=== PATIENT | male | born 1970 | race Caucasian/White ===

== ENCOUNTER 2018-11-05 15:29 | Emergency (ER) | payer BC, OTHER ==
[~2018-11-05] VITALS: Ht 180.3 cm; Wt 85.3 kg
[2018-11-05 15:30] VITALS: BP 139/83
[2018-11-05] MEDS ORDERED: ADACEL/BOOSTRIX VACCINE (DIPHTH/PERTUSS/ACELL/TETANUS)0.5ML SYR (90715) IM ONE (16:00)
== END 2018-11-05 16:19 | disposition home or self-care (01) ==
LOC: M ED 15:29
DX: S61.231A Puncture wound without foreign body of left index finger without damage to nail, initial encounter (principal); W27.0XXA Contact with workbench tool, initial encounter; Y92.89 Other specified places as the place of occurrence of the external cause; Y93.9 Activity, unspecified; Y99.0 Civilian activity done for income or pay

== ENCOUNTER → 2022-10-30 | Outpatient (REF) | payer BC ==
[2022-10-31 13:04] LABS: HEMATOCRIT 45.3 % (42.0-52.0)
[2022-10-31 13:08] LABS: IRON (FE) 120 UG/DL (65-175); PERCENT SATURATION 42.7 % (19.7-50.0); TOTAL IRON BINDING CAPACITY 281 UG/DL (250-425)
[2022-11-01 17:18] LABS: HEPATITIS B SURFACE ANTIGEN NEGATIVE (NEGATIVE)
[2022-11-01 17:40] LABS: HEPATITIS B CORE ANTIBODY IGM NEGATIVE (NEGATIVE)
== END ==
LOC: M LAB REF 12:26
PROVIDERS: ATTEND Nurse Practitioner Adult Health
DX: R74.01 Elevation of levels of liver transaminase levels (principal)

== ENCOUNTER → 2022-12-03 | Outpatient (CLI) | payer BC | LOC: M RAD 07:58 | PROVIDERS: ATTEND Nurse Practitioner Adult Health | DX: R74.01 Elevation of levels of liver transaminase levels (principal) ==

== ENCOUNTER → 2023-07-23 | Outpatient (CLI) | payer BC | LOC: M RAD 07:29 | PROVIDERS: ATTEND Chiropractor | DX: M54.50 Low back pain, unspecified (principal) ==

== ENCOUNTER 2024-11-23 14:48 | Inpatient (IN) | payer OTHER, MEDICAID ==
[~2024-11-23] VITALS: Ht 180.3 cm; Wt 68.4 kg
[2024-11-23 15:39] LABS: IONIZED CALCIUM 4.4 MG/DL (4.5-5.3)
[2024-11-23 15:50] LABS: BASO % 0.2 % (0.0-1.0); HEMATOCRIT 41.3 % (42.0-52.0); HEMOGLOBIN 14.4 g/dl (13.5-17.5); LYMPH # 0.3 10^3/uL (1.5-5.0); LYMPH % 5.1 % (24.0-44.0); MEAN CORPUSCULAR HEMOGLOBIN 33.6 pg (27.0-33.0); MEAN CORPUSCULAR HGB CONC 34.9 g/dl (32.0-36.5); MEAN CORPUSCULAR VOLUME 96.3 fl (80.0-96.0); MONO # 0.3 10^3/uL (0.0-0.8); NEUTROPHILS # 4.9 10^3/uL (1.5-8.5); NEUTROPHILS % 88.3 % (36.0-66.0); PLATELET COUNT, AUTOMATED 169 10^3/uL (150-450); RED BLOOD COUNT 4.29 10^6/uL (4.30-6.10); WHITE BLOOD COUNT 5.5 10^3/uL (4.0-10.0)
[2024-11-23 16:16] LABS: ETHYL ALCOHOL (ETHANOL) 0.004 % (0.000-0.010)
[2024-11-23 16:21] LABS: ALBUMIN 4.1 G/DL (3.2-5.2); ALKALINE PHOSPHATASE 69 U/L (40-129); ALT/SGPT 38 U/L (7.0-40); AST/SGOT 60 U/L (<34); BILIRUBIN,DIRECT 0.2 MG/DL (<0.4); BILIRUBIN,TOTAL 0.9 MG/DL (0.3-1.2); BLOOD UREA NITROGEN 5 MG/DL (9-23); CALCIUM LEVEL 8.8 MG/DL (8.5-10.1); CARBON DIOXIDE LEVEL 20 MMOL/L (20-31); CHLORIDE LEVEL 101 MMOL/L (98-107); GLOMERULAR FILTRATION RATE > 90.0 (>56); GLUCOSE, FASTING 149 MG/DL (60-100); PHOSPHORUS LEVEL 2.3 MG/DL (2.5-4.9); POTASSIUM SERUM 4.5 MMOL/L (3.5-5.1); SODIUM LEVEL 137 MMOL/L (136-145); TOTAL PROTEIN 6.8 G/DL (5.7-8.2)
[2024-11-23 16:33] LABS: RSV AMPLIFICATION NEGATIVE (NEGATIVE)
[2024-11-23] MEDS: ONDANSETRON 4MG 2ML VIAL IV ONE (16:45)
[2024-11-23] MEDS: LORazepam 2 MG/ML 1ML VIAL IV STA (16:54)
[2024-11-23] MEDS: NS (Normal Saline) 0.9% 1,000 ML IV ONE (18:00)
[2024-11-23] MEDS ORDERED: HOME MED LIST COMPLETE! XX SCH (18:10)
[2024-11-23] MEDS ORDERED: LORazepam 2 MG TAB PO PRN (18:45)
[2024-11-23] MEDS: THIAMINE 100 MG TAB PO SCH (19:12)
[2024-11-23] MEDS: LORazepam 2 MG TAB PO PRN (19:13)
[2024-11-23] MEDS ORDERED: MAALOX 30 ML SUSP *UDC PO PRN (19:20)
[2024-11-23] MEDS ORDERED: MOM 30ML SUSPENSION UDC PO PRN (19:20)
[2024-11-23] MEDS ORDERED: ONDANSETRON 4MG ORAL DISINTEGRATING TAB SL PRN (19:20)
[2024-11-23] MEDS ORDERED: ACETAMINOPHEN 325 MG TAB PO PRN (19:20)
[2024-11-23 20:07] LABS: THYROID STIMULATING HORMONE 1.6 uIU/ML (0.55-4.78); THYROXINE (T4) 5.6 UG/DL (4.5-10.9)
[2024-11-23 20:08] LABS: FREE THYROXINE INDEX 2.4 % (1.4-3.8); T UPTAKE 43.7 % (22.5-37.0)
[2024-11-23] MEDS: OXAZEPAM 15MG CAP PO SCH (20:22)
[2024-11-23] MEDS: DOCUSATE SODIUM 100MG CAPSULE PO SCH (21:00)
[2024-11-23 21:36] VITALS: BP 144/91; TEMP 97.7; O2SAT 97
[2024-11-23 21:42] VITALS: BP 144/91
[2024-11-23 22:44] VITALS: O2SAT 94
[2024-11-24] VITALS (11 sets, daily range): BP systolic 123–162; BP diastolic 77–98; TEMP 96.8–97.7; O2SAT 93–98
[2024-11-24 05:58] LABS: HEMATOCRIT 40.8 % (42.0-52.0); MEAN CORPUSCULAR HEMOGLOBIN 33.5 pg (27.0-33.0); MEAN CORPUSCULAR HGB CONC 34.3 g/dl (32.0-36.5); MEAN CORPUSCULAR VOLUME 97.6 fl (80.0-96.0); PLATELET COUNT, AUTOMATED 145 10^3/uL (150-450); RED BLOOD COUNT 4.18 10^6/uL (4.30-6.10)
[2024-11-24 06:26] LABS: ALBUMIN 3.4 G/DL (3.2-5.2); ALKALINE PHOSPHATASE 70 U/L (40-129); ALT/SGPT 31 U/L (7.0-40); AST/SGOT 50 U/L (<34); BILIRUBIN,TOTAL 1.6 MG/DL (0.3-1.2); BLOOD UREA NITROGEN < 5 MG/DL (9-23); CALCIUM LEVEL 8.7 MG/DL (8.5-10.1); CARBON DIOXIDE LEVEL 27 MMOL/L (20-31); CHLORIDE LEVEL 106 MMOL/L (98-107); CREATININE FOR GFR 0.94 MG/DL (0.70-1.30); GLOMERULAR FILTRATION RATE > 90.0 (>56); GLUCOSE, FASTING 92 MG/DL (60-100); MAGNESIUM LEVEL 2.1 MG/DL (1.8-2.4); POTASSIUM SERUM 3.9 MMOL/L (3.5-5.1); SODIUM LEVEL 142 MMOL/L (136-145); TOTAL PROTEIN 5.9 G/DL (5.7-8.2)
[2024-11-24] MEDS: MULTIVITAMINS/MINERALS THERAP 1 TAB PO SCH (08:36)
[2024-11-24] MEDS: ENOXAPARIN 40MG/0.4ML SYRINGE (J1650 PER 10MG) SC SCH (08:36)
[2024-11-24] MEDS: FOLIC ACID 1MG TAB PO SCH (08:37)
[2024-11-24] MEDS: THIAMINE 100 MG TAB PO SCH (08:37)
[2024-11-24] MEDS ORDERED: FOLIC ACID 1MG TAB PO SCH (09:00)
[2024-11-24] MEDS ORDERED: MULTIVITAMINS/MINERALS THERAP 1 TAB PO SCH (09:00)
[2024-11-24] MEDS: NALTREXONE 50 MG TAB PO SCH (11:09)
[2024-11-24] MEDS: diazePAM 5MG TABLET PO SCH (11:09)
[2024-11-24] MEDS: GABAPENTIN 300 MG CAP PO SCH (11:09)
[2024-11-24 11:16] LABS: CHOLESTEROL LEVEL 197 MG/DL (<200); HDL CHOLESTEROL 122.7 MG/DL (>40); LDL CHOLESTEROL 63.5 MG/DL (<100); NON-HDL-C 74.3 MG/DL; TRIGLYCERIDES LEVEL 54 MG/DL (<150)
[2024-11-24 11:52] LABS: HEMOGLOBIN A1c 5.6 % (4.0-6.0)
[2024-11-24 13:40] LABS: AMPHETAMINES LEVEL URINE NEGATIVE (NEGATIVE); BARBITURATES URINE NEGATIVE (NEGATIVE); CANNABINOIDS URINE NEGATIVE (NEGATIVE); COCAINE METABOLITE URINE NEGATIVE (NEGATIVE); METHADONE URINE NEGATIVE (NEGATIVE); OPIATES URINE NEGATIVE (NEGATIVE); PHENCYCLIDINE URINE NEGATIVE (NEGATIVE)
[2024-11-24 13:41] LABS: BENZODIAZEPINES URINE POSITIVE (NEGATIVE)
[2024-11-24] MEDS ORDERED: OXAZEPAM 15MG CAP PO SCH (18:00)
[2024-11-24] MEDS: ATORVASTATIN 20 MG TAB PO SCH (20:35)
[2024-11-24 20:36] LABS: KETONE, URINE AUTO RFX NEGATIVE (NEGATIVE); LEUKOCYTE ESTERASE UR AUTO RFX NEGATIVE (NEGATIVE); NITRITE, URINE AUTO RFX NEGATIVE (NEGATIVE); RBC, URINE AUTO RFX 0 /HPF (0-3); SQUAM EPITHELIAL CELL UR AURFX 0 /HPF (0-6); WBC, URINE AUTO RFX 0 /HPF (0-3)
[2024-11-25] VITALS (8 sets, daily range): BP systolic 120–146; BP diastolic 78–94; TEMP 97–97.5; O2SAT 96–100
[2024-11-25 05:55] LABS: BASO % 1.2 % (0.0-1.0); EOS # 0.1 10^3/uL (0.0-0.5); EOS % 1.5 % (0.0-3.0); HEMATOCRIT 41.7 % (42.0-52.0); HEMOGLOBIN 14.2 g/dl (13.5-17.5); LYMPH # 0.9 10^3/uL (1.5-5.0); LYMPH % 27.8 % (24.0-44.0); MEAN CORPUSCULAR HEMOGLOBIN 33.2 pg (27.0-33.0); MEAN CORPUSCULAR HGB CONC 34.1 g/dl (32.0-36.5); MEAN CORPUSCULAR VOLUME 97.4 fl (80.0-96.0); MONO # 0.4 10^3/uL (0.0-0.8); MONO % 12.8 % (2.0-8.0); NEUTROPHILS # 1.9 10^3/uL (1.5-8.5); NEUTROPHILS % 56.4 % (36.0-66.0); PLATELET COUNT, AUTOMATED 145 10^3/uL (150-450); RED BLOOD COUNT 4.28 10^6/uL (4.30-6.10); WHITE BLOOD COUNT 3.4 10^3/uL (4.0-10.0)
[2024-11-25 06:25] LABS: ALBUMIN 3.4 G/DL (3.2-5.2); ALKALINE PHOSPHATASE 72 U/L (40-129); ALT/SGPT 31 U/L (7.0-40); AST/SGOT 55 U/L (<34); BILIRUBIN,TOTAL 1.2 MG/DL (0.3-1.2); BLOOD UREA NITROGEN 6 MG/DL (9-23); CARBON DIOXIDE LEVEL 28 MMOL/L (20-31); CHLORIDE LEVEL 107 MMOL/L (98-107); CREATININE FOR GFR 0.82 MG/DL (0.70-1.30); GLOMERULAR FILTRATION RATE > 90.0 (>56); GLUCOSE, FASTING 90 MG/DL (60-100); POTASSIUM SERUM 3.6 MMOL/L (3.5-5.1); SODIUM LEVEL 144 MMOL/L (136-145)
[2024-11-26] VITALS: BP 136/89; TEMP 97.5; O2SAT 96
[2024-11-26 05:57] VITALS: BP 134/92; TEMP 97.2; O2SAT 99
[2024-11-26 06:12] LABS: EOS # 0.1 10^3/uL (0.0-0.5); HEMATOCRIT 41.1 % (42.0-52.0); LYMPH # 1.1 10^3/uL (1.5-5.0); LYMPH % 28.2 % (24.0-44.0); MEAN CORPUSCULAR HEMOGLOBIN 33.3 pg (27.0-33.0); MEAN CORPUSCULAR HGB CONC 34.1 g/dl (32.0-36.5); MEAN CORPUSCULAR VOLUME 97.6 fl (80.0-96.0); MONO # 0.5 10^3/uL (0.0-0.8); MONO % 13.4 % (2.0-8.0); NEUTROPHILS # 2.2 10^3/uL (1.5-8.5); NEUTROPHILS % 55.1 % (36.0-66.0); PLATELET COUNT, AUTOMATED 141 10^3/uL (150-450); RED BLOOD COUNT 4.21 10^6/uL (4.30-6.10)
[2024-11-26 06:38] LABS: ALBUMIN 3.2 G/DL (3.2-5.2); ALKALINE PHOSPHATASE 98 U/L (40-129); ALT/SGPT 30 U/L (7.0-40); AST/SGOT 43 U/L (<34); BILIRUBIN,TOTAL 0.4 MG/DL (0.3-1.2); BLOOD UREA NITROGEN 8 MG/DL (9-23); CALCIUM LEVEL 8.8 MG/DL (8.5-10.1); CARBON DIOXIDE LEVEL 28 MMOL/L (20-31); CHLORIDE LEVEL 107 MMOL/L (98-107); CREATININE FOR GFR 0.79 MG/DL (0.70-1.30); GLOMERULAR FILTRATION RATE > 90.0 (>56); GLUCOSE, FASTING 108 MG/DL (60-100); MAGNESIUM LEVEL 1.8 MG/DL (1.8-2.4); POTASSIUM SERUM 3.7 MMOL/L (3.5-5.1); SODIUM LEVEL 144 MMOL/L (136-145); TOTAL PROTEIN 5.7 G/DL (5.7-8.2)
[2024-11-26 08:00] VITALS: BP 127/87; TEMP 97; O2SAT 98
[2024-11-26] MEDS ORDERED: NALT50TA4 PO (09:32)
[2024-11-26] MEDS ORDERED: FOLI1TAB11 PO (09:32)
[2024-11-26] MEDS ORDERED: ATOR1TAB21 PO (09:32)
[2024-11-26] MEDS ORDERED: ATOR40TA75 PO (10:13)
[2024-11-26] MEDS ORDERED: DIAZ5TAB PO ×2 (10:23→10:32)
[2024-11-26 12:00] VITALS: BP 138/94; TEMP 97.8; O2SAT 98
== END 2024-11-26 16:11 | disposition home or self-care (01) | DRG 53 ==
LOC: M ED 14:48 → EDBD 14:48 → M ED INP 19:19 → M MSPAV 21:16
PROVIDERS: ADMIT Student in an Organized Health Care Education/Training Program; ATTEND Student in an Organized Health Care Education/Training Program
DX: R56.9 Unspecified convulsions (principal); F10.239 Alcohol dependence with withdrawal, unspecified; Z86.73 Personal history of transient ischemic attack (TIA), and cerebral infarction without residual deficits